=== PATIENT | female | born 2000 | race Caucasian/White ===

== ENCOUNTER 2023-10-13 22:09 | Emergency (ER) | payer OTHER, SELFPAY ==
[~2023-10-13] VITALS: Ht 154.9 cm; Wt 44.9 kg
[2023-10-14 05:18] VITALS: BP 113/74; TEMP 97.2; O2SAT 100
== END 2023-10-14 05:28 | disposition home or self-care (01) ==
LOC: M ED 22:09
DX: S90.861A Insect bite (nonvenomous), right foot, initial encounter (principal); F17.200 Nicotine dependence, unspecified, uncomplicated; F12.10 Cannabis abuse, uncomplicated; F10.10 Alcohol abuse, uncomplicated; Y92.9 Unspecified place or not applicable; Y93.89 Activity, other specified; Y99.9 Unspecified external cause status